=== PATIENT | female | born 1995 | race Caucasian/White ===

== ENCOUNTER 2017-06-16 07:46 | Observation (INO) | payer MEDICAID ==
[~2017-06-16] VITALS: Ht 165.1 cm; Wt 55.3 kg
[2017-06-16 08:13] LABS: APPEARANCE CLOUDY (CLEAR); BILIRUBIN NEGATIVE (NEGATIVE); COLOR DK YELLOW (YELLOW); GLUCOSE NEGATIVE (NEGATIVE); KETONE MODERATE mg/dL (NEGATIVE); NITRITE NEGATIVE (NEGATIVE); PROTEIN TRACE mg/dL (NEGATIVE); SPECIFIC GRAVITY 1.015 (1.005-1.020); UROBILINOGEN NORMAL (NORMAL)
[2017-06-16 08:14] LABS: BACTERIA MODERATE /hpf (NONE SEEN); MUCUS >1+ /lpf (NONE SEEN); RED CELLS - URINE OCC /hpf (0-5)
[2017-06-16 08:44] LABS: BASOPHILS 0.2 % (0-2); EOSINOPHILS 0.5 % (0-7); HEMATOCRIT 36.6 % (36.0-48.0); HEMOGLOBIN 13.3 g/dL (12-16); IMMATURE GRANULOCYTES 0.4 % (0-5); MCHC 36.3 g/dL (31.0-37.0); MCV 82.6 fL (80.0-100.0); MEAN PLATELET VOLUME 9.3 fL (7.4-10.4); MONOCYTES 6.5 % (2-11); NEUTROPHILS 78.4 % (40-80); PLATELET COUNT 281 10x3/uL (130-400); RBC 4.43 10x6/uL (4.00-5.40); RDW 11.8 % (11.5-14.5); WBC 9.6 10x3/uL (4.8-10.8)
[2017-06-16 09:05] LABS: ALBUMIN 4.3 g/dL (3.4-5.0); ALKALINE PHOSPHATASE 46 U/L (46-116); ALT (SGPT) 29 U/L (10-68); CALC OSMOLALITY 271 mosm/kg (275-300); CALCIUM 9.4 mg/dL (8.5-10.1); CARBON DIOXIDE 19.1 mmol/L (21.0-32.0); CHLORIDE - SERUM 102 mmol/L (98-107); CREATININE - SERUM 0.9 mg/dL (0.6-1.3); GLUCOSE 108 mg/dL (74-106); POTASSIUM - SERUM 3.4 mmol/L (3.5-5.1); PROTEIN - SERUM 7.5 g/dL (6.4-8.2); SODIUM 136 mmol/L (136-145); UREA NITROGEN 9 mg/dL (7-18); eGFR NON AFRICAN AMERICAN 85 mL/min (90-120)
[2017-06-16 09:26] LABS: AMYLASE - SERUM 49 U/L (25-115); HCG - QUANTITATIVE (MATERNAL) 91703 mIU/mL; LIPASE 80 U/L (73-393)
[2017-06-16 10:16] LABS: HCG URINE POSITIVE (NEGATIVE)
[2017-06-16] MEDS ORDERED: PHENERGAN25 M1 PO (21:05)
[2017-06-16 21:06] VITALS: Ht 165.1 cm; Wt 55.3 kg
[2017-06-17 05:24] VITALS: BP 134/83
[2017-06-17 06:33] LABS: BASOPHILS 0 % (0-2); EOSINOPHILS 0.1 % (0-7); HEMATOCRIT 30.9 % (36.0-48.0); HEMOGLOBIN 10.9 g/dL (12-16); IMMATURE GRANULOCYTES 0.1 % (0-5); LYMPHOCYTES 6.5 % (15-50); MCH 29.6 pg (26.0-34.0); MCHC 35.3 g/dL (31.0-37.0); MEAN PLATELET VOLUME 9.6 fL (7.4-10.4); MONOCYTES 6.5 % (2-11); NEUTROPHILS 86.8 % (40-80); PLATELET COUNT 229 10x3/uL (130-400); RBC 3.68 10x6/uL (4.00-5.40); RDW 11.7 % (11.5-14.5); WBC 10.3 10x3/uL (4.8-10.8)
[2017-06-17 06:50] LABS: CALCIUM 8.6 mg/dL (8.5-10.1); CARBON DIOXIDE 19.4 mmol/L (21.0-32.0); CHLORIDE - SERUM 105 mmol/L (98-107); GLUCOSE 98 mg/dL (74-106); POTASSIUM - SERUM 3.4 mmol/L (3.5-5.1); SODIUM 135 mmol/L (136-145)
[2017-06-17 06:59] LABS: CALC OSMOLALITY 266 mosm/kg (275-300); CREATININE - SERUM 0.6 mg/dL (0.6-1.3); UREA NITROGEN 4 mg/dL (7-18); eGFR NON AFRICAN AMERICAN > 90 mL/min (90-120)
[2017-06-17 09:00] VITALS: BP 135/85
[2017-06-17 12:05] VITALS: BP 125/65
[2017-06-17 16:03] VITALS: BP 134/76
[2017-06-17 20:17] VITALS: BP 131/81
[2017-06-18 04:00] VITALS: BP 118/70
[2017-06-18 07:05] LABS: BASOPHILS 0.2 % (0-2); EOSINOPHILS 1.2 % (0-7); HEMATOCRIT 30.7 % (36.0-48.0); HEMOGLOBIN 10.8 g/dL (12-16); IMMATURE GRANULOCYTES 0.4 % (0-5); MCH 29.8 pg (26.0-34.0); MCHC 35.2 g/dL (31.0-37.0); MCV 84.8 fL (80.0-100.0); MEAN PLATELET VOLUME 9.3 fL (7.4-10.4); MONOCYTES 11.6 % (2-11); NEUTROPHILS 67.6 % (40-80); PLATELET COUNT 210 10x3/uL (130-400); RBC 3.62 10x6/uL (4.00-5.40); RDW 11.9 % (11.5-14.5)
[2017-06-18 07:06] LABS: WBC 5.7 10x3/uL (4.8-10.8)
[2017-06-18 07:21] LABS: ALBUMIN 3.3 g/dL (3.4-5.0); ALKALINE PHOSPHATASE 39 U/L (46-116); ALT (SGPT) 26 U/L (10-68); CALC OSMOLALITY 269 mosm/kg (275-300); CALCIUM 8.5 mg/dL (8.5-10.1); CARBON DIOXIDE 22.3 mmol/L (21.0-32.0); CHLORIDE - SERUM 107 mmol/L (98-107); CREATININE - SERUM 0.6 mg/dL (0.6-1.3); GLUCOSE 97 mg/dL (74-106); POTASSIUM - SERUM 4.2 mmol/L (3.5-5.1); SODIUM 137 mmol/L (136-145); eGFR NON AFRICAN AMERICAN > 90 mL/min (90-120)
[2017-06-18 07:22] LABS: UREA NITROGEN 2 mg/dL (7-18)
[2017-06-18 07:55] VITALS: BP 133/71
[2017-06-18] MEDS ORDERED: ZOFRAN ODT4 MG/UDTAB PO (09:35)
[2017-06-18] MEDS ORDERED: PHENERGAN25 M1 PO (09:35)
== END 2017-06-18 10:00 | disposition home or self-care (01) ==
LOC: D.ER 07:46 → D.LD 18:58 → D.EDHOLD 18:58 → OBSVTIME 18:58 → D.LD 20:07 → D.WS 06-17 21:15
PROVIDERS: Emergency Medicine; Family Medicine
DX: O21.1 Hyperemesis gravidarum with metabolic disturbance (principal); Z3A.01 Less than 8 weeks gestation of pregnancy; Z87.891 Personal history of nicotine dependence

== ENCOUNTER 2017-06-20 14:25 | Inpatient (IN) | payer MEDICAID ==
[~2017-06-20] VITALS: Ht 165.1 cm; Wt 55.3 kg
[~2017-06-20 14:25] MED LIST: PHENERGAN25 M1 PO; ZOFRAN ODT4 MG/UDTAB PO
[2017-06-20 15:32] LABS: BASOPHILS 0.2 % (0-2); EOSINOPHILS 0.2 % (0-7); HEMATOCRIT 37.1 % (36.0-48.0); HEMOGLOBIN 13.4 g/dL (12-16); IMMATURE GRANULOCYTES 0.3 % (0-5); LYMPHOCYTES 9.5 % (15-50); MCHC 36.1 g/dL (31.0-37.0); MCV 83.2 fL (80.0-100.0); MEAN PLATELET VOLUME 9.3 fL (7.4-10.4); NEUTROPHILS 83.8 % (40-80); RBC 4.46 10x6/uL (4.00-5.40); RDW 11.9 % (11.5-14.5); WBC 10.1 10x3/uL (4.8-10.8)
[2017-06-20 15:41] LABS: PLATELET COUNT 296 10x3/uL (130-400)
[2017-06-20 19:33] LABS: COLOR YELLOW (YELLOW)
[2017-06-20 19:34] LABS: ALKALINE PHOSPHATASE 44 U/L (46-116); BILIRUBIN - TOTAL 0.44 mg/dL (0.2-1.3); CALC OSMOLALITY 267 mosm/kg (275-300); CALCIUM 9.7 mg/dL (8.5-10.1); CARBON DIOXIDE 19.2 mmol/L (21.0-32.0); CHLORIDE - SERUM 100 mmol/L (98-107); CREATININE - SERUM 0.6 mg/dL (0.6-1.3); GLUCOSE 104 mg/dL (74-106); POTASSIUM - SERUM 3.3 mmol/L (3.5-5.1); SODIUM 135 mmol/L (136-145); UREA NITROGEN 8 mg/dL (7-18); eGFR NON AFRICAN AMERICAN > 90 mL/min (90-120)
[2017-06-20 19:34] LABS: APPEARANCE CLEAR (CLEAR); BILIRUBIN NEGATIVE (NEGATIVE); GLUCOSE NEGATIVE (NEGATIVE); KETONE MODERATE mg/dL (NEGATIVE); NITRITE NEGATIVE (NEGATIVE); PROTEIN NEGATIVE (NEGATIVE); SPECIFIC GRAVITY 1.015 (1.005-1.020); UROBILINOGEN NORMAL (NORMAL)
[2017-06-20 19:40] LABS: HCG URINE POSITIVE (NEGATIVE)
[2017-06-20 19:42] LABS: ALT (SGPT) 25 U/L (10-68)
[2017-06-20 22:47] VITALS: BP 134/78; Ht 165.1 cm; Wt 55.3 kg
[2017-06-21 05:41] LABS: UDS - AMPHET NEGATIVE QUAL (NEGATIVE); UDS - BARB NEGATIVE QUAL (NEGATIVE); UDS - BENZO NEGATIVE QUAL (NEGATIVE); UDS - COCAINE NEGATIVE QUAL (NEGATIVE); UDS - OPIATE NEGATIVE QUAL (NEGATIVE); UDS - PCP NEGATIVE QUAL (NEGATIVE); UDS - THC POSITIVE QUAL (NEGATIVE)
== END 2017-06-21 11:52 | disposition home or self-care (01) | DRG 781 ==
LOC: D.ER 14:25 → D.LD 20:08 → D.EDHOLD 20:08 → D.LD 21:13
PROVIDERS: Family Medicine; Nurse Practitioner Family; Obstetrics & Gynecology
DX: O21.1 Hyperemesis gravidarum with metabolic disturbance (principal); Z3A.01 Less than 8 weeks gestation of pregnancy

== ENCOUNTER 2017-06-22 17:02 | Outpatient (CLI) | payer MEDICAID ==
[~2017-06-22] VITALS: Ht 165.1 cm; Wt 55.5 kg
[2017-06-22 18:04] LABS: BASOPHILS 0.1 % (0-2); EOSINOPHILS 0.1 % (0-7); HEMATOCRIT 34.5 % (36.0-48.0); HEMOGLOBIN 12.5 g/dL (12-16); IMMATURE GRANULOCYTES 0.4 % (0-5); LYMPHOCYTES 13.4 % (15-50); MCH 30.2 pg (26.0-34.0); MCHC 36.2 g/dL (31.0-37.0); MCV 83.3 fL (80.0-100.0); MEAN PLATELET VOLUME 9.2 fL (7.4-10.4); MONOCYTES 7.3 % (2-11); NEUTROPHILS 78.7 % (40-80); PLATELET COUNT 282 10x3/uL (130-400); RBC 4.14 10x6/uL (4.00-5.40); RDW 11.7 % (11.5-14.5); WBC 11.2 10x3/uL (4.8-10.8)
[2017-06-22 18:26] LABS: ALBUMIN 3.9 g/dL (3.4-5.0); ALKALINE PHOSPHATASE 39 U/L (46-116); ALT (SGPT) 23 U/L (10-68); AMYLASE - SERUM 49 U/L (25-115); BILIRUBIN - TOTAL 0.46 mg/dL (0.2-1.3); CALC OSMOLALITY 266 mosm/kg (275-300); CALCIUM 9.3 mg/dL (8.5-10.1); CARBON DIOXIDE 20.6 mmol/L (21.0-32.0); CHLORIDE - SERUM 101 mmol/L (98-107); CREATININE - SERUM 0.6 mg/dL (0.6-1.3); GLUCOSE 86 mg/dL (74-106); LIPASE 75 U/L (73-393); POTASSIUM - SERUM 3.2 mmol/L (3.5-5.1); PROTEIN - SERUM 7.6 g/dL (6.4-8.2); SODIUM 135 mmol/L (136-145); UREA NITROGEN 7 mg/dL (7-18); eGFR NON AFRICAN AMERICAN > 90 mL/min (90-120)
[2017-06-22 18:56] LABS: APPEARANCE HAZY (CLEAR); BILIRUBIN NEGATIVE (NEGATIVE); COLOR YELLOW (YELLOW); GLUCOSE NEGATIVE (NEGATIVE); KETONE LARGE mg/dL (NEGATIVE); NITRITE NEGATIVE (NEGATIVE); PROTEIN NEGATIVE (NEGATIVE); UROBILINOGEN NORMAL (NORMAL)
[2017-06-22 22:01] VITALS: BP 125/67; Ht 165.1 cm; Wt 55.5 kg
[2017-06-22 22:10] LABS: HCG URINE POSITIVE (NEGATIVE)
[2017-06-22 22:21] LABS: UDS - AMPHET NEGATIVE QUAL (NEGATIVE); UDS - BARB NEGATIVE QUAL (NEGATIVE); UDS - BENZO NEGATIVE QUAL (NEGATIVE); UDS - COCAINE NEGATIVE QUAL (NEGATIVE); UDS - OPIATE NEGATIVE QUAL (NEGATIVE); UDS - PCP NEGATIVE QUAL (NEGATIVE); UDS - THC POSITIVE QUAL (NEGATIVE)
[2017-06-23 08:43] VITALS: BP 120/57
== END 2017-06-23 12:13 | disposition home or self-care (01) ==
LOC: D.ER 17:02 → D.LDO 17:02 → D.ER 17:02 → EDSTATUS 20:50 → D.LD 21:01 → D.LDO 06-23 12:13
PROVIDERS: Emergency Medicine; Physician Assistant Medical
DX: O21.0 Mild hyperemesis gravidarum (principal); Z3A.01 Less than 8 weeks gestation of pregnancy

== ENCOUNTER 2017-06-25 19:27 | Emergency (ER) | payer MEDICAID ==
[2017-06-22 22:01] VITALS: BMI 20.3
== END 2017-06-25 20:40 | disposition home or self-care (01) ==
LOC: D.ER 19:27
DX: O21.0 Mild hyperemesis gravidarum (principal); Z3A.08 8 weeks gestation of pregnancy

== ENCOUNTER 2017-07-03 09:17 | Emergency (ER) | payer MEDICAID ==
[2017-06-22 22:01] VITALS: BMI 20.3
[2017-07-03 10:15] LABS: BASOPHILS 0.1 % (0-2); EOSINOPHILS 0.5 % (0-7); HEMATOCRIT 31.4 % (36.0-48.0); HEMOGLOBIN 10.9 g/dL (12-16); IMMATURE GRANULOCYTES 0.3 % (0-5); LYMPHOCYTES 13.2 % (15-50); MCH 29.7 pg (26.0-34.0); MCHC 34.7 g/dL (31.0-37.0); MCV 85.6 fL (80.0-100.0); MONOCYTES 7.7 % (2-11); NEUTROPHILS 78.2 % (40-80); PLATELET COUNT 250 10x3/uL (130-400); RBC 3.67 10x6/uL (4.00-5.40); RDW 12.1 % (11.5-14.5); WBC 9.5 10x3/uL (4.8-10.8)
[2017-07-03 10:34] LABS: ALBUMIN 3.3 g/dL (3.4-5.0); ALKALINE PHOSPHATASE 35 U/L (46-116); ALT (SGPT) 21 U/L (10-68); BILIRUBIN - TOTAL 0.55 mg/dL (0.2-1.3); CALC OSMOLALITY 267 mosm/kg (275-300); CALCIUM 8.8 mg/dL (8.5-10.1); CARBON DIOXIDE 23.9 mmol/L (21.0-32.0); CHLORIDE - SERUM 104 mmol/L (98-107); CREATININE - SERUM 0.4 mg/dL (0.6-1.3); GLUCOSE 88 mg/dL (74-106); POTASSIUM - SERUM 4.3 mmol/L (3.5-5.1); PROTEIN - SERUM 6.4 g/dL (6.4-8.2); SODIUM 136 mmol/L (136-145); UREA NITROGEN 4 mg/dL (7-18); eGFR NON AFRICAN AMERICAN > 90 mL/min (90-120)
[2017-07-03 11:51] LABS: APPEARANCE CLEAR (CLEAR); BILIRUBIN NEGATIVE (NEGATIVE); COLOR YELLOW (YELLOW); GLUCOSE NEGATIVE (NEGATIVE); KETONE SMALL mg/dL (NEGATIVE); NITRITE NEGATIVE (NEGATIVE); PROTEIN NEGATIVE (NEGATIVE); UROBILINOGEN NORMAL (NORMAL)
== END 2017-07-03 13:53 | disposition home or self-care (01) ==
LOC: D.ER 09:17
PROVIDERS: Family Medicine
DX: O26.899 Other specified pregnancy related conditions, unspecified trimester (principal); Z3A.00 Weeks of gestation of pregnancy not specified; R10.9 Unspecified abdominal pain; K59.00 Constipation, unspecified; R11.10 Vomiting, unspecified

== ENCOUNTER 2017-07-05 13:49 | Emergency (ER) | payer MEDICAID ==
[2017-06-22 22:01] VITALS: BMI 20.3
[2017-07-05 14:12] LABS: BASOPHILS 0.1 % (0-2); EOSINOPHILS 0.2 % (0-7); HEMATOCRIT 32.4 % (36.0-48.0); HEMOGLOBIN 11.4 g/dL (12-16); IMMATURE GRANULOCYTES 0.6 % (0-5); LYMPHOCYTES 8.5 % (15-50); MCH 29.7 pg (26.0-34.0); MCHC 35.2 g/dL (31.0-37.0); MCV 84.4 fL (80.0-100.0); MONOCYTES 4.7 % (2-11); NEUTROPHILS 85.9 % (40-80); RBC 3.84 10x6/uL (4.00-5.40); RDW 12.1 % (11.5-14.5); WBC 17.7 10x3/uL (4.8-10.8)
[2017-07-05 14:29] LABS: PLATELET COUNT 314 10x3/uL (130-400)
[2017-07-05 14:39] LABS: ALBUMIN 3.5 g/dL (3.4-5.0); ALKALINE PHOSPHATASE 37 U/L (46-116); ALT (SGPT) 20 U/L (10-68); BILIRUBIN - TOTAL 0.38 mg/dL (0.2-1.3); CALC OSMOLALITY 271 mosm/kg (275-300); CALCIUM 9.4 mg/dL (8.5-10.1); CARBON DIOXIDE 18.2 mmol/L (21.0-32.0); CHLORIDE - SERUM 104 mmol/L (98-107); CREATININE - SERUM 0.6 mg/dL (0.6-1.3); GLUCOSE 109 mg/dL (74-106); POTASSIUM - SERUM 3.4 mmol/L (3.5-5.1); PROTEIN - SERUM 7.1 g/dL (6.4-8.2); SODIUM 137 mmol/L (136-145); UREA NITROGEN 5 mg/dL (7-18); eGFR NON AFRICAN AMERICAN > 90 mL/min (90-120)
[2017-07-05 14:57] LABS: AMYLASE - SERUM 56 U/L (25-115); LIPASE 72 U/L (73-393)
[2017-07-05 14:59] LABS: HCG - QUANTITATIVE (MATERNAL) 224004 mIU/mL
[2017-07-05 15:12] LABS: APPEARANCE CLEAR (CLEAR); BILIRUBIN NEGATIVE (NEGATIVE); COLOR YELLOW (YELLOW); GLUCOSE NEGATIVE (NEGATIVE); KETONE LARGE mg/dL (NEGATIVE); NITRITE NEGATIVE (NEGATIVE); PROTEIN NEGATIVE (NEGATIVE); SPECIFIC GRAVITY 1.025 (1.005-1.020); UROBILINOGEN NORMAL (NORMAL)
[2017-07-05 15:14] LABS: AMORPHOUS SEDIMENT >1+ /lpf (NONE SEEN); BACTERIA FEW /hpf (NONE SEEN); RED CELLS - URINE OCC /hpf (0-5); WHITE CELLS - URINE 0-5 /hpf (0-5)
[2017-07-05 15:22] LABS: UDS - AMPHET NEGATIVE QUAL (NEGATIVE); UDS - BARB NEGATIVE QUAL (NEGATIVE); UDS - BENZO NEGATIVE QUAL (NEGATIVE); UDS - COCAINE NEGATIVE QUAL (NEGATIVE); UDS - OPIATE NEGATIVE QUAL (NEGATIVE); UDS - PCP NEGATIVE QUAL (NEGATIVE); UDS - THC POSITIVE QUAL (NEGATIVE)
== END 2017-07-05 17:02 | disposition home or self-care (01) ==
LOC: D.ER 13:49
PROVIDERS: Family Medicine
DX: O21.9 Vomiting of pregnancy, unspecified (principal); Z3A.09 9 weeks gestation of pregnancy

== ENCOUNTER 2017-07-10 12:31 | Emergency (ER) | payer MEDICAID ==
[2017-06-22 22:01] VITALS: BMI 20.3
[2017-07-10 14:08] LABS: BASOPHILS 0.1 % (0-2); EOSINOPHILS 0.1 % (0-7); HEMOGLOBIN 11.1 g/dL (12-16); IMMATURE GRANULOCYTES 0.3 % (0-5); LYMPHOCYTES 12.6 % (15-50); MCHC 35.8 g/dL (31.0-37.0); MCV 83.8 fL (80.0-100.0); MONOCYTES 5.7 % (2-11); NEUTROPHILS 81.2 % (40-80); PLATELET COUNT 311 10x3/uL (130-400); RDW 12.2 % (11.5-14.5); WBC 7.7 10x3/uL (4.8-10.8)
[2017-07-10 14:17] LABS: ALBUMIN 3.5 g/dL (3.4-5.0); ALKALINE PHOSPHATASE 38 U/L (46-116); ALT (SGPT) 24 U/L (10-68); BILIRUBIN - TOTAL 0.44 mg/dL (0.2-1.3); CALC OSMOLALITY 269 mosm/kg (275-300); CALCIUM 9.3 mg/dL (8.5-10.1); CARBON DIOXIDE 18.5 mmol/L (21.0-32.0); CHLORIDE - SERUM 102 mmol/L (98-107); CREATININE - SERUM 0.6 mg/dL (0.6-1.3); GLUCOSE 116 mg/dL (74-106); POTASSIUM - SERUM 3.6 mmol/L (3.5-5.1); PROTEIN - SERUM 7.3 g/dL (6.4-8.2); SODIUM 136 mmol/L (136-145); UREA NITROGEN 5 mg/dL (7-18); eGFR NON AFRICAN AMERICAN > 90 mL/min (90-120)
== END 2017-07-10 15:43 | disposition home or self-care (01) ==
LOC: D.ER 12:31
PROVIDERS: Emergency Medicine
DX: O21.9 Vomiting of pregnancy, unspecified (principal); Z3A.10 10 weeks gestation of pregnancy

== ENCOUNTER 2017-07-18 06:40 | Emergency (ER) | payer MEDICAID ==
[2017-06-22 22:01] VITALS: Ht 165.1 cm; Wt 56.7 kg
[~2017-07-18] VITALS: Ht 165.1 cm; Wt 56.7 kg
[2017-07-18 07:24] LABS: BASOPHILS 0.1 % (0-2); EOSINOPHILS 1.2 % (0-7); HEMATOCRIT 33.1 % (36.0-48.0); HEMOGLOBIN 11.8 g/dL (12-16); IMMATURE GRANULOCYTES 0.2 % (0-5); LYMPHOCYTES 21.2 % (15-50); MCH 30.2 pg (26.0-34.0); MCHC 35.6 g/dL (31.0-37.0); MCV 84.7 fL (80.0-100.0); MEAN PLATELET VOLUME 9.1 fL (7.4-10.4); MONOCYTES 6.6 % (2-11); NEUTROPHILS 70.7 % (40-80); PLATELET COUNT 319 10x3/uL (130-400); RBC 3.91 10x6/uL (4.00-5.40); RDW 12.2 % (11.5-14.5); WBC 9.3 10x3/uL (4.8-10.8)
[2017-07-18 07:43] LABS: ALBUMIN 3.7 g/dL (3.4-5.0); ALKALINE PHOSPHATASE 43 U/L (46-116); ALT (SGPT) 23 U/L (10-68); BILIRUBIN - TOTAL 0.42 mg/dL (0.2-1.3); CALC OSMOLALITY 272 mosm/kg (275-300); CALCIUM 9.1 mg/dL (8.5-10.1); CARBON DIOXIDE 19.9 mmol/L (21.0-32.0); CHLORIDE - SERUM 103 mmol/L (98-107); CREATININE - SERUM 0.6 mg/dL (0.6-1.3); GLUCOSE 119 mg/dL (74-106); POTASSIUM - SERUM 3.3 mmol/L (3.5-5.1); PROTEIN - SERUM 7.4 g/dL (6.4-8.2); SODIUM 137 mmol/L (136-145); UREA NITROGEN 7 mg/dL (7-18); eGFR NON AFRICAN AMERICAN > 90 mL/min (90-120)
[2017-07-18 07:58] LABS: APPEARANCE HAZY (CLEAR); COLOR YELLOW (YELLOW); SPECIFIC GRAVITY 1.005 (1.005-1.020)
[2017-07-18 07:59] LABS: BACTERIA MODERATE /hpf (NONE SEEN); BILIRUBIN NEGATIVE (NEGATIVE); EPITHELIAL CELLS 0-5 /hpf (0-5); GLUCOSE NEGATIVE (NEGATIVE); GRANULAR CAST RARE /lpf (NONE SEEN); KETONE SMALL mg/dL (NEGATIVE); MUCUS <1+ /lpf (NONE SEEN); NITRITE NEGATIVE (NEGATIVE); PROTEIN NEGATIVE (NEGATIVE); RED CELLS - URINE RARE /hpf (0-5); UROBILINOGEN NORMAL (NORMAL); WHITE CELLS - URINE 0-5 /hpf (0-5)
[2017-07-18 08:00] LABS: AMORPHOUS SEDIMENT <1+ /lpf (NONE SEEN)
[2017-07-18 09:50] VITALS: BP 112/62
== END 2017-07-18 09:50 | disposition home or self-care (01) ==
LOC: D.ER 06:40
PROVIDERS: Family Medicine
DX: O21.0 Mild hyperemesis gravidarum (principal); Z3A.11 11 weeks gestation of pregnancy; R10.9 Unspecified abdominal pain

== ENCOUNTER 2017-07-20 15:21 | Emergency (ER) | payer MEDICAID ==
[~2017-07-20] VITALS: Ht 165.1 cm; Wt 55.5 kg
[2017-07-20 15:42] VITALS: Ht 165.1 cm; Wt 55.5 kg
[2017-07-20 16:12] LABS: BASOPHILS 0.1 % (0-2); EOSINOPHILS 0.2 % (0-7); HEMATOCRIT 33.5 % (36.0-48.0); HEMOGLOBIN 11.6 g/dL (12-16); IMMATURE GRANULOCYTES 0.3 % (0-5); LYMPHOCYTES 10.6 % (15-50); MCH 29.7 pg (26.0-34.0); MCHC 34.6 g/dL (31.0-37.0); MCV 85.9 fL (80.0-100.0); MONOCYTES 2.5 % (2-11); NEUTROPHILS 86.3 % (40-80); PLATELET COUNT 310 10x3/uL (130-400); RDW 12.1 % (11.5-14.5); WBC 11.5 10x3/uL (4.8-10.8)
[2017-07-20 16:29] LABS: ALBUMIN 3.7 g/dL (3.4-5.0); ALKALINE PHOSPHATASE 40 U/L (46-116); ALT (SGPT) 21 U/L (10-68); BILIRUBIN - TOTAL 0.54 mg/dL (0.2-1.3); CALC OSMOLALITY 274 mosm/kg (275-300); CALCIUM 9.4 mg/dL (8.5-10.1); CARBON DIOXIDE 22.3 mmol/L (21.0-32.0); CHLORIDE - SERUM 104 mmol/L (98-107); CREATININE - SERUM 0.6 mg/dL (0.6-1.3); GLUCOSE 109 mg/dL (74-106); POTASSIUM - SERUM 3.3 mmol/L (3.5-5.1); PROTEIN - SERUM 7.5 g/dL (6.4-8.2); SODIUM 138 mmol/L (136-145); UREA NITROGEN 6 mg/dL (7-18); eGFR NON AFRICAN AMERICAN > 90 mL/min (90-120)
[2017-07-20 16:51] LABS: HCG - QUANTITATIVE (MATERNAL) 192922 mIU/mL; LIPASE 82 U/L (73-393)
[2017-07-20 17:29] LABS: APPEARANCE HAZY (CLEAR); BILIRUBIN NEGATIVE (NEGATIVE); COLOR YELLOW (YELLOW); GLUCOSE NEGATIVE (NEGATIVE); KETONE LARGE mg/dL (NEGATIVE); NITRITE NEGATIVE (NEGATIVE); PROTEIN NEGATIVE (NEGATIVE); SPECIFIC GRAVITY 1.015 (1.005-1.020); UROBILINOGEN NORMAL (NORMAL)
[2017-07-20 17:32] LABS: RED CELLS - URINE 0-5 /hpf (0-5); WHITE CELLS - URINE 0-5 /hpf (0-5)
[2017-07-20 17:34] LABS: EPITHELIAL CELLS 25-50 /hpf (0-5)
[2017-07-20 17:35] LABS: BACTERIA MODERATE /hpf (NONE SEEN); MUCUS <1+ /lpf (NONE SEEN)
[2017-07-20 20:30] VITALS: BP 118/61
== END 2017-07-20 20:35 | disposition home or self-care (01) ==
LOC: D.ER 15:21
PROVIDERS: Family Medicine
DX: O21.0 Mild hyperemesis gravidarum (principal); Z3A.11 11 weeks gestation of pregnancy; F12.10 Cannabis abuse, uncomplicated

== ENCOUNTER 2017-07-29 16:19 | Emergency (ER) | payer MEDICAID ==
[~2017-07-29] VITALS: Ht 165.1 cm; Wt 54.5 kg
[2017-07-29 16:25] VITALS: Ht 165.1 cm; Wt 54.5 kg
[2017-07-29] MEDS ORDERED: FAMOTIDINE10 MG PO (16:27)
[2017-07-29] MEDS ORDERED: REGLAN10 MG PO (16:27)
[2017-07-29] MEDS ORDERED: PHENERGAN25 M1 PO (17:34)
[2017-07-29 18:13] VITALS: BP 135/75
== END 2017-07-29 18:18 | disposition home or self-care (01) ==
LOC: D.ER 16:19
DX: O21.9 Vomiting of pregnancy, unspecified (principal); Z3A.12 12 weeks gestation of pregnancy

== ENCOUNTER 2017-07-31 11:50 | Emergency (ER) | payer MEDICAID ==
[~2017-07-31] VITALS: Ht 165.1 cm; Wt 54.5 kg
[~2017-07-31 11:50] MED LIST changes: +FAMOTIDINE10 MG PO; +REGLAN10 MG PO
[2017-07-31 12:03] VITALS: Ht 165.1 cm; Wt 54.5 kg
[2017-07-31 12:37] LABS: BASOPHILS 0.1 % (0-2); EOSINOPHILS 0.5 % (0-7); HEMATOCRIT 34.6 % (36.0-48.0); HEMOGLOBIN 12.3 g/dL (12-16); IMMATURE GRANULOCYTES 0.4 % (0-5); LYMPHOCYTES 14.3 % (15-50); MCH 30.1 pg (26.0-34.0); MCHC 35.5 g/dL (31.0-37.0); MCV 84.6 fL (80.0-100.0); MEAN PLATELET VOLUME 9.3 fL (7.4-10.4); MONOCYTES 7.4 % (2-11); NEUTROPHILS 77.3 % (40-80); PLATELET COUNT 284 10x3/uL (130-400); RBC 4.09 10x6/uL (4.00-5.40); RDW 12.1 % (11.5-14.5); WBC 8.4 10x3/uL (4.8-10.8)
[2017-07-31 12:50] LABS: ALBUMIN 3.9 g/dL (3.4-5.0); ALKALINE PHOSPHATASE 44 U/L (46-116); ALT (SGPT) 23 U/L (10-68); CALC OSMOLALITY 269 mosm/kg (275-300); CALCIUM 9.6 mg/dL (8.5-10.1); CARBON DIOXIDE 20.4 mmol/L (21.0-32.0); CHLORIDE - SERUM 102 mmol/L (98-107); CREATININE - SERUM 0.6 mg/dL (0.6-1.3); GLUCOSE 102 mg/dL (74-106); POTASSIUM - SERUM 3.4 mmol/L (3.5-5.1); PROTEIN - SERUM 7.7 g/dL (6.4-8.2); SODIUM 136 mmol/L (136-145); UREA NITROGEN 7 mg/dL (7-18); eGFR NON AFRICAN AMERICAN > 90 mL/min (90-120)
[2017-07-31 13:14] LABS: HCG - QUANTITATIVE (MATERNAL) 183688 mIU/mL
[2017-07-31 14:49] LABS: APPEARANCE CLEAR (CLEAR); BILIRUBIN NEGATIVE (NEGATIVE); COLOR DK YELLOW (YELLOW); GLUCOSE NEGATIVE (NEGATIVE); KETONE LARGE mg/dL (NEGATIVE); NITRITE NEGATIVE (NEGATIVE); PROTEIN 1+ mg/dL (NEGATIVE); SPECIFIC GRAVITY 1.015 (1.005-1.020); UROBILINOGEN NORMAL (NORMAL)
[2017-07-31 14:50] LABS: RED CELLS - URINE 0-5 /hpf (0-5)
[2017-07-31 14:51] LABS: BACTERIA MANY /hpf (NONE SEEN); MUCUS <1+ /lpf (NONE SEEN)
[2017-07-31 15:42] VITALS: BP 106/56
== END 2017-07-31 15:38 | disposition home or self-care (01) ==
LOC: D.ER 11:50
PROVIDERS: Family Medicine
DX: O21.9 Vomiting of pregnancy, unspecified (principal); Z3A.12 12 weeks gestation of pregnancy

== ENCOUNTER 2017-08-07 15:37 | Emergency (ER) | payer MEDICAID ==
[~2017-08-07] VITALS: Ht 165.1 cm; Wt 54.5 kg
[2017-08-07 15:53] VITALS: Ht 165.1 cm; Wt 54.5 kg
[2017-08-07 18:54] LABS: BASOPHILS 0.1 % (0-2); EOSINOPHILS 0.1 % (0-7); HEMATOCRIT 36.1 % (36.0-48.0); HEMOGLOBIN 12.6 g/dL (12-16); IMMATURE GRANULOCYTES 0.3 % (0-5); LYMPHOCYTES 9.9 % (15-50); MCH 29.9 pg (26.0-34.0); MCHC 34.9 g/dL (31.0-37.0); MCV 85.7 fL (80.0-100.0); MEAN PLATELET VOLUME 9.7 fL (7.4-10.4); MONOCYTES 2.2 % (2-11); NEUTROPHILS 87.4 % (40-80); PLATELET COUNT 339 10x3/uL (130-400); RBC 4.21 10x6/uL (4.00-5.40); RDW 12.2 % (11.5-14.5); WBC 13.4 10x3/uL (4.8-10.8)
[2017-08-07 19:12] LABS: ALBUMIN 3.9 g/dL (3.4-5.0); ALKALINE PHOSPHATASE 46 U/L (46-116); ALT (SGPT) 16 U/L (10-68); BILIRUBIN - TOTAL 0.31 mg/dL (0.2-1.3); CALC OSMOLALITY 269 mosm/kg (275-300); CALCIUM 9.8 mg/dL (8.5-10.1); CARBON DIOXIDE 23.1 mmol/L (21.0-32.0); CHLORIDE - SERUM 102 mmol/L (98-107); CREATININE - SERUM 0.7 mg/dL (0.6-1.3); GLUCOSE 94 mg/dL (74-106); PROTEIN - SERUM 8.1 g/dL (6.4-8.2); SODIUM 136 mmol/L (136-145); UREA NITROGEN 7 mg/dL (7-18); eGFR NON AFRICAN AMERICAN > 90 mL/min (90-120)
[2017-08-07 21:04] LABS: APPEARANCE CLOUDY (CLEAR); COLOR YELLOW (YELLOW); GLUCOSE NEGATIVE (NEGATIVE); KETONE LARGE mg/dL (NEGATIVE); NITRITE NEGATIVE (NEGATIVE); PROTEIN 1+ mg/dL (NEGATIVE)
[2017-08-07 21:05] LABS: BILIRUBIN NEGATIVE (NEGATIVE); UROBILINOGEN NORMAL (NORMAL)
[2017-08-07 21:06] LABS: BACTERIA MANY /hpf (NONE SEEN); EPITHELIAL CELLS 0-5 /hpf (0-5); MUCUS <1+ /lpf (NONE SEEN); RED CELLS - URINE 0-5 /hpf (0-5); WHITE CELLS - URINE >50 /hpf (0-5)
[2017-08-07] MEDS ORDERED: PROMETHEGA25 MG/SUPP RC (21:24)
[2017-08-08 04:16] VITALS: BP 118/71
== END 2017-08-07 22:31 | disposition home or self-care (01) ==
LOC: D.ER 15:37
PROVIDERS: Family Medicine
DX: O21.9 Vomiting of pregnancy, unspecified (principal); Z3A.13 13 weeks gestation of pregnancy; R19.7 Diarrhea, unspecified; R53.1 Weakness

== ENCOUNTER 2017-09-14 17:49 | Emergency (ER) | payer MEDICAID ==
[~2017-09-14] VITALS: Ht 165.1 cm; Wt 59.1 kg
[~2017-09-14 17:49] MED LIST changes: +PROMETHEGA25 MG/SUPP RC
[2017-09-14 17:55] VITALS: Ht 165.1 cm; Wt 59.1 kg
[2017-09-14 18:55] LABS: APPEARANCE CLEAR (CLEAR); BILIRUBIN NEGATIVE (NEGATIVE); COLOR YELLOW (YELLOW); GLUCOSE NEGATIVE (NEGATIVE); KETONE NEGATIVE (NEGATIVE); NITRITE NEGATIVE (NEGATIVE); PROTEIN 1+ mg/dL (NEGATIVE); SPECIFIC GRAVITY 1.025 (1.005-1.020); UROBILINOGEN NORMAL (NORMAL)
[2017-09-14 19:05] LABS: BASOPHILS 0.1 % (0-2); EOSINOPHILS 0 % (0-7); HEMATOCRIT 33.4 % (36.0-48.0); HEMOGLOBIN 11.5 g/dL (12-16); IMMATURE GRANULOCYTES 0.4 % (0-5); LYMPHOCYTES 6.9 % (15-50); MCH 29.6 pg (26.0-34.0); MCHC 34.4 g/dL (31.0-37.0); MCV 86.1 fL (80.0-100.0); MEAN PLATELET VOLUME 9.7 fL (7.4-10.4); MONOCYTES 3.8 % (2-11); NEUTROPHILS 88.8 % (40-80); RBC 3.88 10x6/uL (4.00-5.40); RDW 12.8 % (11.5-14.5); WBC 10.9 10x3/uL (4.8-10.8)
[2017-09-14 19:15] LABS: PLATELET COUNT 267 10x3/uL (130-400)
[2017-09-14 19:21] LABS: HCG SERUM POSITIVE (NEGATIVE)
[2017-09-14 19:27] LABS: ALBUMIN 3.6 g/dL (3.4-5.0); ALKALINE PHOSPHATASE 50 U/L (46-116); ALT (SGPT) 19 U/L (10-68); BILIRUBIN - TOTAL 0.26 mg/dL (0.2-1.3); CALC OSMOLALITY 270 mosm/kg (275-300); CALCIUM 8.7 mg/dL (8.5-10.1); CARBON DIOXIDE 20.7 mmol/L (21.0-32.0); CHLORIDE - SERUM 102 mmol/L (98-107); CREATININE - SERUM 0.6 mg/dL (0.6-1.3); GLUCOSE 105 mg/dL (74-106); POTASSIUM - SERUM 3.3 mmol/L (3.5-5.1); PROTEIN - SERUM 7.4 g/dL (6.4-8.2); SODIUM 137 mmol/L (136-145); UREA NITROGEN 5 mg/dL (7-18); eGFR NON AFRICAN AMERICAN > 90 mL/min (90-120)
[2017-09-14] MEDS ORDERED: COMPAZINE25 MG RC (20:23)
[2017-09-14 20:38] VITALS: BP 103/57
== END 2017-09-14 20:38 | disposition home or self-care (01) ==
LOC: D.ER 17:49
PROVIDERS: Family Medicine
DX: O21.0 Mild hyperemesis gravidarum (principal); Z3A.19 19 weeks gestation of pregnancy

== ENCOUNTER → 2017-09-20 15:31 | Outpatient (CLI) | payer MEDICAID ==
[2017-09-14 17:55] VITALS: BMI 21.6
[~2017-09-20 15:31] MED LIST changes: +COMPAZINE25 MG RC
[2017-09-20 16:11] LABS: APPEARANCE HAZY (CLEAR); BILIRUBIN NEGATIVE (NEGATIVE); COLOR YELLOW (YELLOW); GLUCOSE NEGATIVE (NEGATIVE); KETONE LARGE mg/dL (NEGATIVE); NITRITE NEGATIVE (NEGATIVE); PROTEIN TRACE mg/dL (NEGATIVE); SPECIFIC GRAVITY 1.025 (1.005-1.020); UROBILINOGEN NORMAL (NORMAL)
[2017-09-20 16:12] LABS: BACTERIA MODERATE /hpf (NONE SEEN); EPITHELIAL CELLS 25-50 /hpf (0-5); MUCUS <1+ /lpf (NONE SEEN); RED CELLS - URINE OCC /hpf (0-5); WHITE CELLS - URINE 0-5 /hpf (0-5)
[2017-09-20 16:46] LABS: ANION GAP 15.2 mmol/L (8-16); CARBON DIOXIDE 22.2 mmol/L (21.0-32.0); POTASSIUM - SERUM 3.4 mmol/L (3.5-5.1)
[2017-09-20 16:58] LABS: BASOPHILS 0.1 % (0-2); EOSINOPHILS 0.4 % (0-7); HEMATOCRIT 31.3 % (36.0-48.0); HEMOGLOBIN 10.8 g/dL (12-16); IMMATURE GRANULOCYTES 0.3 % (0-5); LYMPHOCYTES 11.8 % (15-50); MCH 29.2 pg (26.0-34.0); MCHC 34.5 g/dL (31.0-37.0); MCV 84.6 fL (80.0-100.0); MEAN PLATELET VOLUME 9.5 fL (7.4-10.4); MONOCYTES 3.5 % (2-11); NEUTROPHILS 83.9 % (40-80); PLATELET COUNT 231 10x3/uL (130-400); RDW 12.4 % (11.5-14.5); WBC 9.7 10x3/uL (4.8-10.8)
[2017-09-20 20:15] LABS: APPEARANCE CLEAR (CLEAR); BILIRUBIN NEGATIVE (NEGATIVE); COLOR YELLOW (YELLOW); GLUCOSE 100 mg/dL (NEGATIVE); KETONE NEGATIVE (NEGATIVE); NITRITE NEGATIVE (NEGATIVE); PROTEIN NEGATIVE (NEGATIVE); SPECIFIC GRAVITY 1.005 (1.005-1.020); UROBILINOGEN NORMAL (NORMAL)
== END | disposition home or self-care (01) ==
LOC: D.LDO 15:31
PROVIDERS: Obstetrics & Gynecology
DX: O26.892 Other specified pregnancy related conditions, second trimester (principal); Z3A.20 20 weeks gestation of pregnancy

== ENCOUNTER 2017-10-06 14:31 | Emergency (ER) | payer MEDICAID ==
[~2017-10-06] VITALS: Ht 165.1 cm; Wt 59.5 kg
[2017-10-06 15:21] VITALS: Ht 165.1 cm; Wt 59.5 kg
[2017-10-06 16:13] LABS: BASOPHILS 0.1 % (0-2); EOSINOPHILS 0.9 % (0-7); HEMATOCRIT 33.3 % (36.0-48.0); HEMOGLOBIN 11.4 g/dL (12-16); IMMATURE GRANULOCYTES 0.5 % (0-5); LYMPHOCYTES 19.4 % (15-50); MCH 29.7 pg (26.0-34.0); MCHC 34.2 g/dL (31.0-37.0); MCV 86.7 fL (80.0-100.0); MEAN PLATELET VOLUME 9.3 fL (7.4-10.4); MONOCYTES 5.5 % (2-11); NEUTROPHILS 73.6 % (40-80); PLATELET COUNT 266 10x3/uL (130-400); RBC 3.84 10x6/uL (4.00-5.40); RDW 12.6 % (11.5-14.5); WBC 8.7 10x3/uL (4.8-10.8)
[2017-10-06 16:30] LABS: APTT 25.7 SECONDS (22.8-39.4); INR 0.99 (0.85-1.17); PROTIME 12.7 SECONDS (11.6-15.0)
[2017-10-06 17:41] VITALS: BP 124/76
== END 2017-10-06 17:41 | disposition home or self-care (01) ==
LOC: D.ER 14:31
PROVIDERS: Obstetrics & Gynecology
DX: O26.892 Other specified pregnancy related conditions, second trimester (principal); Z3A.22 22 weeks gestation of pregnancy

== ENCOUNTER 2017-10-23 15:11 | Outpatient (CLI) | payer MEDICAID ==
[2017-10-06 15:21] VITALS: BMI 21.8
[2017-10-23 17:10] LABS: APPEARANCE HAZY (CLEAR); BILIRUBIN NEGATIVE (NEGATIVE); COLOR YELLOW (YELLOW); GLUCOSE NEGATIVE (NEGATIVE); KETONE LARGE mg/dL (NEGATIVE); NITRITE NEGATIVE (NEGATIVE); PROTEIN NEGATIVE (NEGATIVE); SPECIFIC GRAVITY 1.025 (1.005-1.020); UROBILINOGEN NORMAL (NORMAL)
[2017-10-23 17:11] LABS: RED CELLS - URINE 0-5 /hpf (0-5); WHITE CELLS - URINE 25-50 /hpf (0-5)
[2017-10-23 17:12] LABS: BACTERIA MANY /hpf (NONE SEEN)
== END 2017-10-23 20:55 | disposition home or self-care (01) ==
LOC: D.LDO 15:11
PROVIDERS: Obstetrics & Gynecology
DX: O21.9 Vomiting of pregnancy, unspecified (principal); Z3A.24 24 weeks gestation of pregnancy

== ENCOUNTER 2017-10-23 16:00 | Emergency (ER) | payer MEDICAID ==
[2017-10-06 15:21] VITALS: BMI 21.8
== END 2017-10-23 16:03 | disposition left against medical advice (07) ==
LOC: D.ER 16:00 → EDSTATUS 16:00 → D.ER 16:03
DX: O26.899 Other specified pregnancy related conditions, unspecified trimester (principal); Z3A.00 Weeks of gestation of pregnancy not specified; R10.9 Unspecified abdominal pain

== ENCOUNTER 2017-11-04 14:54 | Emergency (ER) | payer MEDICAID ==
[~2017-11-04] VITALS: Ht 165.1 cm; Wt 59.5 kg
[2017-11-04 15:03] VITALS: Ht 165.1 cm; Wt 59.5 kg
[2017-11-04 15:45] VITALS: BP 122/84
== END 2017-11-04 15:46 | disposition short-term general hospital (02) ==
LOC: D.ER 14:54
DX: O21.0 Mild hyperemesis gravidarum (principal); Z3A.26 26 weeks gestation of pregnancy

== ENCOUNTER 2017-11-04 16:01 | Outpatient (CLI) | payer MEDICAID ==
[2017-11-04 15:03] VITALS: BMI 21.8
[2017-11-04 17:00] LABS: APPEARANCE TURBID (CLEAR); BILIRUBIN NEGATIVE (NEGATIVE); COLOR YELLOW (YELLOW); GLUCOSE NEGATIVE (NEGATIVE); KETONE LARGE mg/dL (NEGATIVE); NITRITE NEGATIVE (NEGATIVE); PH 5.5 (5.0-6.0); PROTEIN TRACE mg/dL (NEGATIVE); SPECIFIC GRAVITY 1.025 (1.005-1.020); UROBILINOGEN NORMAL (NORMAL)
[2017-11-04 17:09] LABS: BACTERIA MANY /hpf (NONE SEEN); GRANULAR CAST RARE /lpf (NONE SEEN); HYALINE CAST OCC /lpf (NONE SEEN); RED CELLS - URINE OCC /hpf (0-5); WHITE CELLS - URINE 25-50 /hpf (0-5)
== END 2017-11-04 19:14 | disposition home or self-care (01) ==
LOC: D.LDO 16:01
PROVIDERS: Obstetrics & Gynecology
DX: O21.9 Vomiting of pregnancy, unspecified (principal); Z3A.27 27 weeks gestation of pregnancy; R10.30 Lower abdominal pain, unspecified; R19.7 Diarrhea, unspecified

== ENCOUNTER 2017-11-09 11:55 | Emergency (ER) | payer MEDICAID ==
[~2017-11-09] VITALS: Ht 165.1 cm; Wt 59.5 kg
[2017-11-09 12:08] VITALS: Ht 165.1 cm; Wt 59.5 kg
[2017-11-09 12:26] LABS: BASOPHILS 0.1 % (0-2); EOSINOPHILS 1.1 % (0-7); HEMATOCRIT 30.7 % (36.0-48.0); HEMOGLOBIN 10.7 g/dL (12-16); IMMATURE GRANULOCYTES 0.4 % (0-5); LYMPHOCYTES 14.4 % (15-50); MCH 29.9 pg (26.0-34.0); MCHC 34.9 g/dL (31.0-37.0); MCV 85.8 fL (80.0-100.0); MONOCYTES 6.8 % (2-11); NEUTROPHILS 77.2 % (40-80); PLATELET COUNT 247 10x3/uL (130-400); RBC 3.58 10x6/uL (4.00-5.40); RDW 12.9 % (11.5-14.5); WBC 9.8 10x3/uL (4.8-10.8)
[2017-11-09 12:41] LABS: ALKALINE PHOSPHATASE 62 U/L (46-116); ALT (SGPT) 14 U/L (10-68); BILIRUBIN - TOTAL 0.33 mg/dL (0.2-1.3); CALC OSMOLALITY 269 mosm/kg (275-300); CALCIUM 8.8 mg/dL (8.5-10.1); CARBON DIOXIDE 24.3 mmol/L (21.0-32.0); CHLORIDE - SERUM 106 mmol/L (98-107); CREATININE - SERUM 0.6 mg/dL (0.6-1.3); GLUCOSE 108 mg/dL (74-106); POTASSIUM - SERUM 3.6 mmol/L (3.5-5.1); PROTEIN - SERUM 6.5 g/dL (6.4-8.2); SODIUM 136 mmol/L (136-145); UREA NITROGEN 4 mg/dL (7-18); eGFR NON AFRICAN AMERICAN > 90 mL/min (90-120)
[2017-11-09 12:56] LABS: APPEARANCE TURBID (CLEAR); COLOR YELLOW (YELLOW); SPECIFIC GRAVITY 1.015 (1.005-1.020)
[2017-11-09 12:57] LABS: BILIRUBIN NEGATIVE (NEGATIVE); GLUCOSE NEGATIVE (NEGATIVE); KETONE NEGATIVE (NEGATIVE); NITRITE NEGATIVE (NEGATIVE); PROTEIN TRACE mg/dL (NEGATIVE); UROBILINOGEN NORMAL (NORMAL)
[2017-11-09 12:59] LABS: AMORPHOUS SEDIMENT >1+ /lpf (NONE SEEN); BACTERIA MANY /hpf (NONE SEEN); EPITHELIAL CELLS 0-5 /hpf (0-5); MUCUS <1+ /lpf (NONE SEEN); WHITE CELLS - URINE 0-5 /hpf (0-5)
[2017-11-09 13:03] LABS: HCG - QUANTITATIVE (MATERNAL) 36734 mIU/mL
[2017-11-09] MEDS ORDERED: MACROBID100 MG PO (13:36)
[2017-11-09 15:01] VITALS: BP 114/54
== END 2017-11-09 15:00 | disposition home or self-care (01) ==
LOC: D.ER 11:55
PROVIDERS: Family Medicine
DX: O26.892 Other specified pregnancy related conditions, second trimester (principal); Z3A.27 27 weeks gestation of pregnancy; O23.42 Unspecified infection of urinary tract in pregnancy, second trimester; R55 Syncope and collapse

== ENCOUNTER → 2017-11-09 15:16 | Outpatient (CLI) | payer MEDICAID ==
[2017-11-09 12:08] VITALS: BMI 21.8
[~2017-11-09 15:16] MED LIST changes: +MACROBID100 MG PO
== END | disposition home or self-care (01) ==
LOC: D.LDO 15:16
DX: O26.892 Other specified pregnancy related conditions, second trimester (principal); Z3A.27 27 weeks gestation of pregnancy; R55 Syncope and collapse

== ENCOUNTER → 2017-12-22 20:49 | Outpatient (CLI) | payer MEDICAID ==
[2017-11-09 12:08] VITALS: BMI 21.8
[2017-12-22 21:23] LABS: APPEARANCE CLEAR (CLEAR); BILIRUBIN NEGATIVE (NEGATIVE); COLOR YELLOW (YELLOW); GLUCOSE NEGATIVE (NEGATIVE); KETONE SMALL mg/dL (NEGATIVE); NITRITE NEGATIVE (NEGATIVE); PROTEIN TRACE mg/dL (NEGATIVE); SPECIFIC GRAVITY 1.025 (1.005-1.020); UROBILINOGEN NORMAL (NORMAL)
[2017-12-22 21:30] LABS: UDS - AMPHET NEGATIVE QUAL (NEGATIVE); UDS - BARB NEGATIVE QUAL (NEGATIVE); UDS - BENZO NEGATIVE QUAL (NEGATIVE); UDS - COCAINE NEGATIVE QUAL (NEGATIVE); UDS - OPIATE POSITIVE QUAL (NEGATIVE); UDS - PCP NEGATIVE QUAL (NEGATIVE); UDS - THC POSITIVE QUAL (NEGATIVE)
== END | disposition home or self-care (01) ==
LOC: D.LDO 20:49
PROVIDERS: Obstetrics & Gynecology
DX: O26.893 Other specified pregnancy related conditions, third trimester (principal); Z3A.33 33 weeks gestation of pregnancy

== ENCOUNTER 2018-01-19 23:55 | Inpatient (IN) | payer MEDICAID ==
[2018-01-20 01:05] LABS: APPEARANCE CLEAR (CLEAR); BILIRUBIN NEGATIVE (NEGATIVE); COLOR YELLOW (YELLOW); GLUCOSE NEGATIVE (NEGATIVE); KETONE NEGATIVE (NEGATIVE); NITRITE NEGATIVE (NEGATIVE); PROTEIN NEGATIVE (NEGATIVE); SPECIFIC GRAVITY 1.015 (1.005-1.020); UROBILINOGEN NORMAL (NORMAL)
[2018-01-20 09:41] LABS: HEMATOCRIT 28.9 % (36.0-48.0); HEMOGLOBIN 10.1 g/dL (12-16); MCH 30.1 pg (26.0-34.0); MCHC 34.9 g/dL (31.0-37.0); MCV 86.3 fL (80.0-100.0); MEAN PLATELET VOLUME 9.8 fL (7.4-10.4); RBC 3.35 10x6/uL (4.00-5.40); RDW 13.2 % (11.5-14.5); WBC 7.2 10x3/uL (4.8-10.8)
[2018-01-21 05:18] LABS: HEMATOCRIT 25.6 % (36.0-48.0); HEMOGLOBIN 8.8 g/dL (12-16); MCH 29.7 pg (26.0-34.0); MCHC 34.4 g/dL (31.0-37.0); MCV 86.5 fL (80.0-100.0); MEAN PLATELET VOLUME 9.3 fL (7.4-10.4); RBC 2.96 10x6/uL (4.00-5.40); RDW 13.2 % (11.5-14.5); WBC 8.3 10x3/uL (4.8-10.8)
[2018-01-21 09:11] LABS: UDS - AMPHET NEGATIVE QUAL (NEGATIVE); UDS - BARB NEGATIVE QUAL (NEGATIVE); UDS - BENZO NEGATIVE QUAL (NEGATIVE); UDS - COCAINE NEGATIVE QUAL (NEGATIVE); UDS - OPIATE NEGATIVE QUAL (NEGATIVE); UDS - PCP NEGATIVE QUAL (NEGATIVE); UDS - THC POSITIVE QUAL (NEGATIVE)
[2018-01-23 07:25] LABS: RAPID PLASMA REAGIN Non Reactive (Non Reactive)
== END 2018-01-22 12:45 | disposition home or self-care (01) | DRG 807 ==
LOC: D.LD 23:55 → D.LDO 01-20 08:02 → D.LD 01-20 08:03
PROVIDERS: Obstetrics & Gynecology
PROC: 10D07Z6 Extraction of Products of Conception, Vacuum, Via Natural or Artificial Opening (ICD-10-PCS; principal; 2018-01-20)
PROC: 0HQ9XZZ Repair Perineum Skin, External Approach (ICD-10-PCS; 2018-01-20)
DX: O99.334 Smoking (tobacco) complicating childbirth (principal); Z37.0 Single live birth; O71.4 Obstetric high vaginal laceration alone; Z3A.37 37 weeks gestation of pregnancy

== ENCOUNTER 2018-05-05 10:43 | Emergency (ER) | payer MEDICAID ==
[~2018-05-05] VITALS: Ht 165.1 cm; Wt 63.6 kg
[2018-05-05 10:56] VITALS: Ht 165.1 cm; Wt 63.6 kg
[2018-05-05 11:23] LABS: BASOPHILS 0.2 % (0-2); HEMATOCRIT 34.7 % (36.0-48.0); HEMOGLOBIN 11.6 g/dL (12-16); LYMPHOCYTES 28.8 % (15-50); MCH 27.7 pg (26.0-34.0); MCHC 33.4 g/dL (31.0-37.0); MCV 82.8 fL (80.0-100.0); MONOCYTES 7.2 % (2-11); NEUTROPHILS 61.8 % (40-80); RBC 4.19 10x6/uL (4.00-5.40); RDW 13.6 % (11.5-14.5); WBC 5.4 10x3/uL (4.8-10.8)
[2018-05-05 11:27] LABS: PLATELET COUNT 266 10x3/uL (130-400)
[2018-05-05 11:30] LABS: HCG URINE POSITIVE (NEGATIVE)
[2018-05-05 11:38] LABS: ALBUMIN 3.7 g/dL (3.4-5.0); ALKALINE PHOSPHATASE 60 U/L (46-116); ALT (SGPT) 13 U/L (10-68); BILIRUBIN - TOTAL 0.44 mg/dL (0.2-1.3); CALC OSMOLALITY 271 mosm/kg (275-300); CALCIUM 8.6 mg/dL (8.5-10.1); CARBON DIOXIDE 26.2 mmol/L (21.0-32.0); CHLORIDE - SERUM 102 mmol/L (98-107); CREATININE - SERUM 0.8 mg/dL (0.6-1.3); GLUCOSE 83 mg/dL (74-106); POTASSIUM - SERUM 3.7 mmol/L (3.5-5.1); PROTEIN - SERUM 7.4 g/dL (6.4-8.2); SODIUM 137 mmol/L (136-145); UREA NITROGEN 9 mg/dL (7-18); eGFR NON AFRICAN AMERICAN > 90 mL/min (90-120)
[2018-05-05 11:40] LABS: UDS - AMPHET NEGATIVE QUAL (NEGATIVE); UDS - BARB NEGATIVE QUAL (NEGATIVE); UDS - BENZO NEGATIVE QUAL (NEGATIVE); UDS - COCAINE NEGATIVE QUAL (NEGATIVE); UDS - OPIATE NEGATIVE QUAL (NEGATIVE); UDS - PCP NEGATIVE QUAL (NEGATIVE); UDS - THC POSITIVE QUAL (NEGATIVE)
[2018-05-05 11:48] LABS: APPEARANCE HAZY (CLEAR); BILIRUBIN NEGATIVE (NEGATIVE); COLOR YELLOW (YELLOW); GLUCOSE NEGATIVE (NEGATIVE); KETONE NEGATIVE (NEGATIVE); NITRITE NEGATIVE (NEGATIVE); PROTEIN 1+ mg/dL (NEGATIVE); UROBILINOGEN NORMAL (NORMAL)
[2018-05-05 11:51] LABS: AMORPHOUS SEDIMENT <1+ /lpf (NONE SEEN); BACTERIA MODERATE /hpf (NONE SEEN); MUCUS <1+ /lpf (NONE SEEN); RED CELLS - URINE OCC /hpf (0-5); WHITE CELLS - URINE 0-5 /hpf (0-5)
[2018-05-05 12:17] VITALS: BP 122/68
== END 2018-05-05 12:18 | disposition home or self-care (01) ==
LOC: D.ER 10:43
PROVIDERS: Emergency Medicine
DX: Z32.01 Encounter for pregnancy test, result positive (principal); R11.2 Nausea with vomiting, unspecified

== ENCOUNTER 2018-05-22 17:15 | Emergency (ER) | payer MEDICAID ==
[~2018-05-22] VITALS: Ht 165.1 cm; Wt 61.2 kg
[2018-05-22 17:43] VITALS: Ht 165.1 cm; Wt 61.2 kg
[2018-05-22 19:46] LABS: APPEARANCE HAZY (CLEAR); BILIRUBIN NEGATIVE (NEGATIVE); COLOR YELLOW (YELLOW); GLUCOSE NEGATIVE (NEGATIVE); KETONE NEGATIVE (NEGATIVE); NITRITE POSITIVE (NEGATIVE); PROTEIN TRACE mg/dL (NEGATIVE); SPECIFIC GRAVITY 1.025 (1.005-1.020); UROBILINOGEN NORMAL (NORMAL)
[2018-05-22 19:49] LABS: BACTERIA MANY /hpf (NONE SEEN); RED CELLS - URINE 0-5 /hpf (0-5); WHITE CELLS - URINE 0-5 /hpf (0-5)
[2018-05-22 20:00] VITALS: BP 116/65
== END 2018-05-22 20:01 | disposition home or self-care (01) ==
LOC: D.ER 17:15
PROVIDERS: Family Medicine
DX: O26.891 Other specified pregnancy related conditions, first trimester (principal); Z3A.08 8 weeks gestation of pregnancy; R42 Dizziness and giddiness

== ENCOUNTER 2018-06-08 13:05 | Emergency (ER) | payer MEDICAID ==
[~2018-06-08] VITALS: Ht 165.1 cm; Wt 60.5 kg
[2018-06-08 13:27] VITALS: Ht 165.1 cm; Wt 60.5 kg
[2018-06-08 14:20] LABS: APPEARANCE SL CLDY (CLEAR); BACTERIA MODERATE /hpf (NONE SEEN); BILIRUBIN NEGATIVE (NEGATIVE); COLOR YELLOW (YELLOW); GLUCOSE NEGATIVE (NEGATIVE); KETONE SMALL mg/dL (NEGATIVE); MUCUS >1+ /lpf (NONE SEEN); NITRITE NEGATIVE (NEGATIVE); PROTEIN NEGATIVE (NEGATIVE); RED CELLS - URINE 0-5 /hpf (0-5); SPECIFIC GRAVITY 1.015 (1.005-1.020); UROBILINOGEN NORMAL (NORMAL); WHITE CELLS - URINE 0-5 /hpf (0-5)
[2018-06-08 16:37] VITALS: BP 118/59
== END 2018-06-08 16:40 | disposition home or self-care (01) ==
LOC: D.ER 13:05
PROVIDERS: Emergency Medicine
DX: O20.9 Hemorrhage in early pregnancy, unspecified (principal); Z3A.12 12 weeks gestation of pregnancy

== ENCOUNTER 2018-06-14 16:33 | Emergency (ER) | payer MEDICAID ==
[2018-06-14 16:39] VITALS: BMI 22.1
[2018-06-14 17:03] LABS: BASOPHILS 0.1 % (0-2); EOSINOPHILS 0.6 % (0-7); HEMATOCRIT 33.7 % (36.0-48.0); HEMOGLOBIN 11.9 g/dL (12-16); IMMATURE GRANULOCYTES 0.2 % (0-5); LYMPHOCYTES 13.3 % (15-50); MCH 28.6 pg (26.0-34.0); MCHC 35.3 g/dL (31.0-37.0); MEAN PLATELET VOLUME 9.3 fL (7.4-10.4); MONOCYTES 4.2 % (2-11); NEUTROPHILS 81.6 % (40-80); PLATELET COUNT 297 10x3/uL (130-400); RBC 4.16 10x6/uL (4.00-5.40); RDW 12.8 % (11.5-14.5); WBC 9.2 10x3/uL (4.8-10.8)
[2018-06-14 17:09] LABS: APPEARANCE HAZY (CLEAR); COLOR YELLOW (YELLOW); NITRITE POSITIVE (NEGATIVE); SPECIFIC GRAVITY 1.015 (1.005-1.020)
[2018-06-14 17:10] LABS: BILIRUBIN NEGATIVE (NEGATIVE); GLUCOSE NEGATIVE (NEGATIVE); KETONE NEGATIVE (NEGATIVE); PROTEIN TRACE mg/dL (NEGATIVE); UROBILINOGEN NORMAL (NORMAL)
[2018-06-14 17:11] LABS: BACTERIA MODERATE /hpf (NONE SEEN); MUCUS <1+ /lpf (NONE SEEN); RED CELLS - URINE 0-5 /hpf (0-5)
[2018-06-14 17:19] LABS: ALBUMIN 3.5 g/dL (3.4-5.0); ALKALINE PHOSPHATASE 57 U/L (46-116); ALT (SGPT) 18 U/L (10-68); AMYLASE - SERUM 70 U/L (25-115); BILIRUBIN - TOTAL 0.36 mg/dL (0.2-1.3); CALC OSMOLALITY 270 mosm/kg (275-300); CALCIUM 9.3 mg/dL (8.5-10.1); CARBON DIOXIDE 20.9 mmol/L (21.0-32.0); CHLORIDE - SERUM 103 mmol/L (98-107); CREATININE - SERUM 0.5 mg/dL (0.6-1.3); GLUCOSE 89 mg/dL (74-106); LIPASE 81 U/L (73-393); POTASSIUM - SERUM 3.6 mmol/L (3.5-5.1); PROTEIN - SERUM 7.7 g/dL (6.4-8.2); SODIUM 137 mmol/L (136-145); UREA NITROGEN 6 mg/dL (7-18); eGFR NON AFRICAN AMERICAN > 90 mL/min (90-120)
[2018-06-14] MEDS ORDERED: ZOFRAN8 MG PO (18:48)
[2018-06-14 19:55] VITALS: BP 115/51
== END 2018-06-14 19:55 | disposition home or self-care (01) ==
LOC: D.ER 16:33
PROVIDERS: Emergency Medicine
DX: O23.41 Unspecified infection of urinary tract in pregnancy, first trimester (principal); Z3A.12 12 weeks gestation of pregnancy; R11.0 Nausea

== ENCOUNTER 2018-06-20 11:04 | Emergency (ER) | payer MEDICAID ==
[~2018-06-20] VITALS: Ht 165.1 cm; Wt 60.5 kg
[~2018-06-20 11:04] MED LIST changes: +ZOFRAN8 MG PO
[2018-06-20 11:06] VITALS: Ht 165.1 cm; Wt 60.5 kg
[2018-06-20 13:12] LABS: BASOPHILS 0.1 % (0-2); EOSINOPHILS 0.3 % (0-7); HEMATOCRIT 33.7 % (36.0-48.0); IMMATURE GRANULOCYTES 0.2 % (0-5); LYMPHOCYTES 12.7 % (15-50); MCH 28.6 pg (26.0-34.0); MCHC 35.6 g/dL (31.0-37.0); MCV 80.2 fL (80.0-100.0); MEAN PLATELET VOLUME 9.1 fL (7.4-10.4); MONOCYTES 4.4 % (2-11); NEUTROPHILS 82.3 % (40-80); PLATELET COUNT 291 10x3/uL (130-400); RDW 12.7 % (11.5-14.5)
[2018-06-20 13:25] LABS: ALBUMIN 3.5 g/dL (3.4-5.0); ALKALINE PHOSPHATASE 55 U/L (46-116); ALT (SGPT) 17 U/L (10-68); AMYLASE - SERUM 53 U/L (25-115); CALC OSMOLALITY 268 mosm/kg (275-300); CALCIUM 9.2 mg/dL (8.5-10.1); CARBON DIOXIDE 19.3 mmol/L (21.0-32.0); CHLORIDE - SERUM 103 mmol/L (98-107); CREATININE - SERUM 0.6 mg/dL (0.6-1.3); GLUCOSE 107 mg/dL (74-106); LIPASE 71 U/L (73-393); POTASSIUM - SERUM 3.4 mmol/L (3.5-5.1); PROTEIN - SERUM 7.6 g/dL (6.4-8.2); SODIUM 136 mmol/L (136-145); UREA NITROGEN 5 mg/dL (7-18); eGFR NON AFRICAN AMERICAN > 90 mL/min (90-120)
[2018-06-20 15:52] LABS: APPEARANCE HAZY (CLEAR); BILIRUBIN NEGATIVE (NEGATIVE); COLOR YELLOW (YELLOW); GLUCOSE NEGATIVE (NEGATIVE); KETONE MODERATE mg/dL (NEGATIVE); NITRITE NEGATIVE (NEGATIVE); PROTEIN TRACE mg/dL (NEGATIVE); UROBILINOGEN NORMAL (NORMAL)
[2018-06-20 15:53] LABS: BACTERIA MANY /hpf (NONE SEEN); MUCUS <1+ /lpf (NONE SEEN); RED CELLS - URINE 0-5 /hpf (0-5)
[2018-06-20] MEDS ORDERED: MACROBID100 MG PO (17:20)
[2018-06-20] MEDS ORDERED: ZOFRAN ODT4 MG/UDTAB PO (17:24)
[2018-06-20 17:40] VITALS: BP 109/66
== END 2018-06-20 17:40 | disposition home or self-care (01) ==
LOC: D.ER 11:04
PROVIDERS: Family Medicine
DX: O21.0 Mild hyperemesis gravidarum (principal); Z3A.14 14 weeks gestation of pregnancy; E86.0 Dehydration; N39.0 Urinary tract infection, site not specified

== ENCOUNTER 2018-07-01 20:16 | Emergency (ER) | payer MEDICAID ==
[~2018-07-01] VITALS: Ht 165.1 cm; Wt 60.0 kg
[2018-07-01 20:27] VITALS: Ht 165.1 cm; Wt 60.0 kg
[2018-07-01 21:02] LABS: BASOPHILS 0.1 % (0-2); EOSINOPHILS 0 % (0-7); HEMATOCRIT 34.4 % (36.0-48.0); HEMOGLOBIN 12.1 g/dL (12-16); IMMATURE GRANULOCYTES 0.3 % (0-5); LYMPHOCYTES 11.3 % (15-50); MCH 28.6 pg (26.0-34.0); MCHC 35.2 g/dL (31.0-37.0); MCV 81.3 fL (80.0-100.0); MEAN PLATELET VOLUME 9.3 fL (7.4-10.4); MONOCYTES 2.4 % (2-11); NEUTROPHILS 85.9 % (40-80); PLATELET COUNT 338 10x3/uL (130-400); RBC 4.23 10x6/uL (4.00-5.40); RDW 12.7 % (11.5-14.5); WBC 11.9 10x3/uL (4.8-10.8)
[2018-07-01 21:08] LABS: HCG SERUM POSITIVE (NEGATIVE)
[2018-07-01 21:16] LABS: ALBUMIN 3.6 g/dL (3.4-5.0); ALKALINE PHOSPHATASE 52 U/L (46-116); ALT (SGPT) 19 U/L (10-68); BILIRUBIN - TOTAL 0.64 mg/dL (0.2-1.3); CALC OSMOLALITY 278 mosm/kg (275-300); CALCIUM 9.1 mg/dL (8.5-10.1); CARBON DIOXIDE 16.9 mmol/L (21.0-32.0); CHLORIDE - SERUM 104 mmol/L (98-107); CREATININE - SERUM 0.7 mg/dL (0.6-1.3); GLUCOSE 133 mg/dL (74-106); POTASSIUM - SERUM 3.5 mmol/L (3.5-5.1); PROTEIN - SERUM 7.8 g/dL (6.4-8.2); SODIUM 139 mmol/L (136-145); UREA NITROGEN 11 mg/dL (7-18); eGFR NON AFRICAN AMERICAN > 90 mL/min (90-120)
[2018-07-01] MEDS ORDERED: ONDANSETRON8 MG/TAB PO (21:48)
[2018-07-01 22:47] VITALS: BP 123/71
== END 2018-07-01 22:51 | disposition home or self-care (01) ==
LOC: D.ER 20:16
PROVIDERS: Family Medicine
DX: O21.9 Vomiting of pregnancy, unspecified (principal); Z3A.16 16 weeks gestation of pregnancy

== ENCOUNTER → 2018-09-12 07:41 | Outpatient (CLI) | payer MEDICAID ==
[2018-07-01 20:27] VITALS: BMI 22.0
[~2018-09-12 07:41] MED LIST changes: +ONDANSETRON8 MG/TAB PO
[2018-09-12 08:23] LABS: UDS - AMPHET NEGATIVE QUAL (NEGATIVE); UDS - BARB NEGATIVE QUAL (NEGATIVE); UDS - BENZO NEGATIVE QUAL (NEGATIVE); UDS - COCAINE NEGATIVE QUAL (NEGATIVE); UDS - OPIATE NEGATIVE QUAL (NEGATIVE); UDS - PCP NEGATIVE QUAL (NEGATIVE); UDS - THC POSITIVE QUAL (NEGATIVE)
[2018-09-12 08:41] LABS: APPEARANCE CLEAR (CLEAR); BACTERIA FEW /hpf (NONE SEEN); BILIRUBIN NEGATIVE (NEGATIVE); COLOR YELLOW (YELLOW); EPITHELIAL CELLS 0-5 /hpf (0-5); GLUCOSE NEGATIVE (NEGATIVE); KETONE NEGATIVE (NEGATIVE); NITRITE NEGATIVE (NEGATIVE); PROTEIN NEGATIVE (NEGATIVE); SPECIFIC GRAVITY 1.005 (1.005-1.020); UROBILINOGEN NORMAL (NORMAL); WHITE CELLS - URINE RARE /hpf (0-5)
== END | disposition home or self-care (01) ==
LOC: D.LDO 07:41
PROVIDERS: ATTEND Obstetrics & Gynecology
DX: R11.2 Nausea with vomiting, unspecified (principal)

== ENCOUNTER 2019-01-06 12:12 | Emergency (ER) | payer MEDICAID ==
[~2019-01-06] VITALS: Ht 165.1 cm; Wt 59.1 kg
[2019-01-06 12:26] VITALS: BP 121/69; Ht 165.1 cm; Wt 59.1 kg
== END 2019-01-06 14:06 | disposition left against medical advice (07) ==
LOC: D.ER 12:12
DX: J02.9 Acute pharyngitis, unspecified (principal); R05 Cough

== ENCOUNTER 2019-08-29 14:17 | Emergency (ER) | payer MEDICAID ==
[~2019-08-29] VITALS: Ht 165.1 cm; Wt 51.8 kg
[2019-08-29 14:30] VITALS: Ht 165.1 cm; Wt 51.8 kg
[2019-08-29 15:23] LABS: BILIRUBIN NEGATIVE (NEGATIVE); GLUCOSE NEGATIVE (NEGATIVE); KETONE MODERATE mg/dL (NEGATIVE); NITRITE NEGATIVE (NEGATIVE); UROBILINOGEN NORMAL (NORMAL)
[2019-08-29 15:24] LABS: BACTERIA FEW /hpf (NEGATIVE); EPITHELIAL CELLS 0-5 /hpf (0-5); RED CELLS - URINE NONE SEEN /hpf (0-5)
[2019-08-29 15:44] LABS: HEMATOCRIT 39.9 % (36.0-48.0); HEMOGLOBIN 13.3 g/dL (12-16); LYMPHOCYTES 21.9 % (15-50); MCH 28.6 pg (26.0-34.0); MCHC 33.3 g/dL (31.0-37.0); MCV 85.8 fL (80.0-100.0); MEAN PLATELET VOLUME 9.2 fL (7.4-10.4); NEUTROPHILS 73.5 % (40-80); PLATELET COUNT 346 10x3/uL (130-400); RBC 4.65 10x6/uL (4.00-5.40); RDW 13.1 % (11.5-14.5); WBC 7.2 10x3/uL (4.8-10.8)
[2019-08-29 15:47] LABS: CALC OSMOLALITY 277 mosm/kg (275-300); CALCIUM 9.3 mg/dL (8.5-10.1); CARBON DIOXIDE 23.7 mmol/L (21.0-32.0); CHLORIDE - SERUM 103 mmol/L (98-107); CREATININE - SERUM 0.8 mg/dL (0.6-1.3); GLUCOSE 106 mg/dL (74-106); POTASSIUM - SERUM 3.6 mmol/L (3.5-5.1); SODIUM 139 mmol/L (136-145); UREA NITROGEN 13 mg/dL (7-18); eGFR NON AFRICAN AMERICAN > 90 mL/min (90-120)
[2019-08-29 15:58] LABS: HCG SERUM NEGATIVE (NEGATIVE)
[2019-08-29] MEDS ORDERED: BACTRIM DS TAB1 EAC1 PO (16:03)
[2019-08-29] MEDS ORDERED: ZOFRAN ODT4 MG/UDTAB PO (16:03)
[2019-08-29 16:28] VITALS: BP 118/66
== END 2019-08-29 16:30 | disposition home or self-care (01) ==
LOC: D.ER 14:17
PROVIDERS: Emergency Medicine
DX: N30.00 Acute cystitis without hematuria (principal); R11.2 Nausea with vomiting, unspecified; R19.7 Diarrhea, unspecified

== ENCOUNTER 2019-09-14 13:42 | Emergency (ER) | payer MEDICAID ==
[~2019-09-14 13:42] MED LIST changes: +BACTRIM DS TAB1 EAC1 PO
[2019-09-14 14:03] VITALS: Ht 165.1 cm
[2019-09-14 14:25] LABS: BASOPHILS 0.5 % (0-2); EOSINOPHILS 2.9 % (0-7); HEMATOCRIT 38.5 % (36.0-48.0); HEMOGLOBIN 12.7 g/dL (12-16); IMMATURE GRANULOCYTES 0.2 % (0-5); LYMPHOCYTES 42.2 % (15-50); MCH 28.9 pg (26.0-34.0); MCV 87.7 fL (80.0-100.0); MEAN PLATELET VOLUME 9.6 fL (7.4-10.4); MONOCYTES 7.1 % (2-11); NEUTROPHILS 47.1 % (40-80); PLATELET COUNT 343 10x3/uL (130-400); RBC 4.39 10x6/uL (4.00-5.40); RDW 13.3 % (11.5-14.5); WBC 5.9 10x3/uL (4.8-10.8)
[2019-09-14 14:35] LABS: CALC OSMOLALITY 275 mosm/kg (275-300); CALCIUM 9.5 mg/dL (8.5-10.1); CARBON DIOXIDE 25.2 mmol/L (21.0-32.0); CHLORIDE - SERUM 106 mmol/L (98-107); CREATININE - SERUM 0.9 mg/dL (0.6-1.3); GLUCOSE 98 mg/dL (74-106); SODIUM 139 mmol/L (136-145); UREA NITROGEN 8 mg/dL (7-18); eGFR NON AFRICAN AMERICAN 82 mL/min (90-120)
[2019-09-14 14:44] LABS: ALBUMIN 4.2 g/dL (3.4-5.0); ALKALINE PHOSPHATASE 64 U/L (30-120); ALT (SGPT) 14 U/L (10-68); AMYLASE - SERUM 51 U/L (25-115); BILIRUBIN - TOTAL 0.22 mg/dL (0.2-1.3); LIPASE 121 U/L (73-393); PROTEIN - SERUM 7.7 g/dL (6.4-8.2); TROPONIN-I < 0.017 ng/mL (0.000-0.060)
[2019-09-14 15:50] VITALS: BP 121/68
== END 2019-09-14 15:50 | disposition home or self-care (01) ==
LOC: D.ER 13:42
PROVIDERS: Family Medicine
DX: R55 Syncope and collapse (principal); R11.2 Nausea with vomiting, unspecified

== ENCOUNTER 2019-10-29 13:10 | Emergency (ER) | payer MEDICAID ==
[~2019-10-29] VITALS: Ht 165.1 cm; Wt 53.2 kg
[2019-10-29 13:24] VITALS: BP 116/68; Ht 165.1 cm; Wt 53.2 kg
[2019-10-29] MEDS ORDERED: TRINTELLIX5 MG PO (13:28)
[2019-10-29] MEDS ORDERED: VALIUM 2 MG TAB2 MG PO (13:28)
[2019-10-29 14:01] LABS: BASOPHILS 0.3 % (0-2); EOSINOPHILS 1.2 % (0-7); HEMATOCRIT 34.4 % (36.0-48.0); HEMOGLOBIN 11.3 g/dL (12-16); IMMATURE GRANULOCYTES 0.1 % (0-5); LYMPHOCYTES 18.3 % (15-50); MCHC 32.8 g/dL (31.0-37.0); MCV 88.2 fL (80.0-100.0); MEAN PLATELET VOLUME 9.1 fL (7.4-10.4); MONOCYTES 6.2 % (2-11); NEUTROPHILS 73.9 % (40-80); PLATELET COUNT 307 10x3/uL (130-400); RDW 12.8 % (11.5-14.5)
[2019-10-29 14:10] LABS: CALC OSMOLALITY 274 mosm/kg (275-300); CALCIUM 8.8 mg/dL (8.5-10.1); CARBON DIOXIDE 29.1 mmol/L (21.0-32.0); CHLORIDE - SERUM 105 mmol/L (98-107); CREATININE - SERUM 0.7 mg/dL (0.6-1.3); GLUCOSE 93 mg/dL (74-106); POTASSIUM - SERUM 3.8 mmol/L (3.5-5.1); SODIUM 138 mmol/L (136-145); UREA NITROGEN 11 mg/dL (7-18); eGFR NON AFRICAN AMERICAN > 90 mL/min (90-120)
[2019-10-29 14:15] LABS: ALBUMIN 3.7 g/dL (3.4-5.0); ALKALINE PHOSPHATASE 63 U/L (30-120); ALT (SGPT) 13 U/L (10-68); AMYLASE - SERUM 87 U/L (25-115); BILIRUBIN - TOTAL 0.17 mg/dL (0.2-1.3); LIPASE 384 U/L (73-393); PROTEIN - SERUM 7.4 g/dL (6.4-8.2)
[2019-10-29 14:22] LABS: HCG URINE NEGATIVE (NEGATIVE)
[2019-10-29 14:34] LABS: BILIRUBIN NEGATIVE (NEGATIVE); EPITHELIAL CELLS 0-5 /hpf (0-5); KETONE NEGATIVE (NEGATIVE); NITRITE NEGATIVE (NEGATIVE); UROBILINOGEN NORMAL mg/dL (< 2); WHITE CELLS - URINE 0-5 HPF (0-4)
[2019-10-29 14:35] LABS: BACTERIA MODERATE /HPF (NONE SEEN)
[2019-10-29] MEDS ORDERED: FLAGYL500 MG PO (15:16)
== END 2019-10-29 15:41 | disposition home or self-care (01) ==
LOC: D.ER 13:10
PROVIDERS: Family Medicine
DX: A59.9 Trichomoniasis, unspecified (principal)

== ENCOUNTER 2019-11-09 11:50 | Emergency (ER) | payer MEDICAID ==
[~2019-11-09] VITALS: Ht 165.1 cm; Wt 53.2 kg
[~2019-11-09 11:50] MED LIST changes: +FLAGYL500 MG PO; +TRINTELLIX5 MG PO; +VALIUM 2 MG TAB2 MG PO
[2019-11-09 12:00] VITALS: Ht 165.1 cm; Wt 53.2 kg
[2019-11-09 12:13] LABS: BILIRUBIN NEGATIVE (NEGATIVE); KETONE NEGATIVE (NEGATIVE); NITRITE NEGATIVE (NEGATIVE); UROBILINOGEN NORMAL mg/dL (< 2)
[2019-11-09 12:25] LABS: WHITE CELLS - URINE 4 HPF (0-4)
[2019-11-09 12:26] LABS: BACTERIA FEW HPF (NONE SEEN); HCG URINE NEGATIVE (NEGATIVE)
[2019-11-09 12:45] LABS: BASOPHILS 0.3 % (0-2); EOSINOPHILS 2.3 % (0-7); HEMATOCRIT 33.7 % (36.0-48.0); HEMOGLOBIN 11.3 g/dL (12-16); IMMATURE GRANULOCYTES 0.2 % (0-5); LYMPHOCYTES 31.1 % (15-50); MCH 28.8 pg (26.0-34.0); MCHC 33.5 g/dL (31.0-37.0); MEAN PLATELET VOLUME 8.7 fL (7.4-10.4); MONOCYTES 5.9 % (2-11); NEUTROPHILS 60.2 % (40-80); RBC 3.92 10x6/uL (4.00-5.40); RDW 12.4 % (11.5-14.5); WBC 6.1 10x3/uL (4.8-10.8)
[2019-11-09 12:46] LABS: PLATELET COUNT 392 10x3/uL (130-400)
[2019-11-09 13:04] LABS: CALC OSMOLALITY 274 mosm/kg (275-300); CALCIUM 8.8 mg/dL (8.5-10.1); CARBON DIOXIDE 25.6 mmol/L (21.0-32.0); CHLORIDE - SERUM 106 mmol/L (98-107); CREATININE - SERUM 0.7 mg/dL (0.6-1.3); GLUCOSE 119 mg/dL (74-106); POTASSIUM - SERUM 3.4 mmol/L (3.5-5.1); SODIUM 138 mmol/L (136-145); UREA NITROGEN 8 mg/dL (7-18); eGFR NON AFRICAN AMERICAN > 90 mL/min (90-120)
[2019-11-09 13:13] LABS: ALBUMIN 3.3 g/dL (3.4-5.0); ALKALINE PHOSPHATASE 49 U/L (30-120); ALT (SGPT) 14 U/L (10-68); AMYLASE - SERUM 44 U/L (25-115); LIPASE 63 U/L (73-393); PROTEIN - SERUM 7.4 g/dL (6.4-8.2)
[2019-11-09 13:17] LABS: TROPONIN-I < 0.017 ng/mL (0.000-0.060)
[2019-11-09] MEDS ORDERED: MIRALAX17 GM PO (15:55)
[2019-11-09] MEDS ORDERED: OMEPRAZOLE40 MG PO (15:55)
[2019-11-09 16:15] VITALS: BP 106/63
== END 2019-11-09 16:15 | disposition home or self-care (01) ==
LOC: D.ER 11:50
PROVIDERS: Family Medicine
DX: K59.00 Constipation, unspecified (principal); K21.9 Gastro-esophageal reflux disease without esophagitis; R10.11 Right upper quadrant pain

== ENCOUNTER 2020-04-10 20:33 | Emergency (ER) | payer MEDICAID ==
[~2020-04-10] VITALS: Ht 165.1 cm; Wt 52.3 kg
[~2020-04-10 20:33] MED LIST changes: +MIRALAX17 GM PO; +OMEPRAZOLE40 MG PO
[2020-04-10 20:40] VITALS: Ht 165.1 cm; Wt 52.3 kg
[2020-04-10 21:27] LABS: ANION GAP 14.1 mmol/L (8-16); CALCIUM 9.2 mg/dL (8.5-10.1); CARBON DIOXIDE 25.2 mmol/L (21.0-32.0); POTASSIUM - SERUM 3.3 mmol/L (3.5-5.1)
[2020-04-10 21:42] LABS: ALBUMIN 4.6 g/dL (3.4-5.0); BILIRUBIN - TOTAL 0.91 mg/dL (0.2-1.3); PROTEIN - SERUM 8.5 g/dL (6.4-8.2); THYROID STIMULATING HORMONE 0.74 uIU/mL (0.36-3.74)
[2020-04-10 22:14] LABS: BASOPHILS 0.2 % (0-2); EOSINOPHILS 0.7 % (0-7); HEMATOCRIT 42.7 % (36.0-48.0); HEMOGLOBIN 14.3 g/dL (12-16); IMMATURE GRANULOCYTES 0.2 % (0-5); LYMPHOCYTE ABS# 2.68 10x3/uL (1.18-3.74); LYMPHOCYTES 30.7 % (15-50); MCH 29.4 pg (26.0-34.0); MCHC 33.5 g/dL (31.0-37.0); MCV 87.7 fL (80.0-100.0); MEAN PLATELET VOLUME 9.4 fL (7.4-10.4); MONOCYTES 6.3 % (2-11); NEUTROPHIL ABS# 5.39 10x3/uL (1.56-6.13); NEUTROPHILS 61.9 % (40-80); PLATELET COUNT 328 10x3/uL (130-400); RBC 4.87 10x6/uL (4.00-5.40); RDW 13.3 % (11.5-14.5); WBC 8.7 10x3/uL (4.8-10.8)
[2020-04-10 22:41] LABS: BILIRUBIN NEGATIVE (NEGATIVE); KETONE MODERATE mg/dL (NEGATIVE); NITRITE NEGATIVE (NEGATIVE); UROBILINOGEN NORMAL mg/dL (< 2)
[2020-04-10 22:42] LABS: HCG URINE NEGATIVE (NEGATIVE)
[2020-04-10 22:49] LABS: UDS - AMPHET POSITIVE QUAL (NEGATIVE); UDS - BARB NEGATIVE QUAL (NEGATIVE); UDS - BENZO NEGATIVE QUAL (NEGATIVE); UDS - COCAINE NEGATIVE QUAL (NEGATIVE); UDS - OPIATE NEGATIVE QUAL (NEGATIVE); UDS - PCP NEGATIVE QUAL (NEGATIVE); UDS - THC POSITIVE QUAL (NEGATIVE)
[2020-04-10 23:46] VITALS: BP 117/67
== END 2020-04-10 23:47 | disposition home or self-care (01) ==
LOC: D.ER 20:33
PROVIDERS: Family Medicine
DX: E86.0 Dehydration (principal); G43.909 Migraine, unspecified, not intractable, without status migrainosus; R55 Syncope and collapse; E05.90 Thyrotoxicosis, unspecified without thyrotoxic crisis or storm; R11.0 Nausea

== ENCOUNTER 2020-08-13 19:26 | Emergency (ER) | payer BC ==
[~2020-08-13] VITALS: Ht 165.1 cm; Wt 50.0 kg
[2020-08-13 19:42] VITALS: BP 110/66; Ht 165.1 cm; Wt 50.0 kg
== END 2020-08-13 20:44 | disposition home or self-care (01) ==
LOC: D.ER 19:26
DX: J06.9 Acute upper respiratory infection, unspecified (principal); R05 Cough; J02.8 Acute pharyngitis due to other specified organisms; B34.9 Viral infection, unspecified